=== PATIENT | male | born 1965 | race Asian ===

== ENCOUNTER → 2018-06-01 17:28 | Outpatient (CLI) | payer OTHER, SELFPAY ==
--- NOTE | 2018-06-01 17:31 | DI.MRI.S_ITS ---
PROCEDURE: MR LUMBAR SPINE WO CON INDICATIONS: CHRONIC LOW BACK PAIN TECHNIQUE: Noncontrast sagittal T1 spin echo and T2 fast echo, sagittal STIR, axial T1 and T2 fast spin echo through the lumbar spine. In cases with scoliosis, additional coronal T2 fast spin echo may be performed. COMPARISON: [facility], MR, L-SPINE WITHOUT CONTRAST, 05/24/2014, 11:04. [facility], CR, L-SPINE 2-3 VIEWS, 10/04/2007, 7:18. FINDINGS: Image quality: Diagnostic, with note made of motion artifact. Alignment and Curvature: There is normal bony alignment. Bone Marrow: Marrow is of normal overall signal. No acute vertebral body compression fractures. Spinal Cord: Conus medullaris terminates at the L1 level. Visualized cord demonstrates normal signal and size. Paraspinous Soft Tissues: No paravertebral masses. T12-L1: Normal appearance. L1-L2: Normal appearance. L2-L3: Normal appearance. L3-L4: No significant abnormality is seen. L4-L5: The disc height and disk signal are well-preserved. Mild to moderate disc bulge is seen, which is eccentric to the left side. There is moderate left-sided and no right-sided neural foraminal narrowing. No central canal narrowing. Stable from the prior study. L5-S1: Moderate loss of disc height is seen. Loss of disc signal is seen. Moderate disc bulge is seen. There is a central disc protrusion present. Mild facet joint hypertrophy is seen. Moderate bilateral neural foraminal narrowing is seen. Mild central canal narrowing is seen. When comparison is made with the prior examination, these degenerative changes are slightly progressed, with decreased disc height. IMPRESSION: Lower lumbar spine degenerative changes are seen, which are slightly progressed at the L5-S1 level compared to 2013. Dictated by: Thomas Mccormack M.D. on 06/02/2018 at 8:24 Approved by: Thomas Mccormack M.D. on 06/02/2018 at 8:29
== END ==
PROVIDERS: Visit Provider Physical Medicine & Rehabilitation Pain Medicine
DX: M51.26 Other intervertebral disc displacement, lumbar region (principal); M51.27 Other intervertebral disc displacement, lumbosacral region; M48.061 Spinal stenosis, lumbar region without neurogenic claudication; M48.07 Spinal stenosis, lumbosacral region; G89.29 Other chronic pain
CPT/HCPCS: 72148

== ENCOUNTER → 2020-12-12 09:05 | Outpatient (CLI) | payer OTHER, SELFPAY ==
--- NOTE | 2020-12-12 | DI.MRI.S_ITS ---
PROCEDURE: MR LUMBAR SPINE WO CON INDICATIONS: Radiculopathy, lumbar region TECHNIQUE: Noncontrast sagittal T1 spin echo and T2 fast echo, sagittal STIR, axial T1 and T2 fast spin echo through the lumbar spine. In cases with scoliosis, additional coronal T2 fast spin echo may be performed. COMPARISON: [facility], CR, XR LUMBAR SPINE WITH OLBIQUES PLUS FLEXION EXTENSION, 12/01/2020, 8:39. [facility], MR, MR LUMBAR SPINE WO CON, 06/01/2018, 17:46. [facility], MR, L-SPINE WITHOUT CONTRAST, 05/24/2014, 11:04. FINDINGS: Image quality: Excellent. Alignment and Curvature: There is normal bony alignment. Bone Marrow: Reactive endplate changes noted adjacent to the L5-S1 disc. No acute vertebral body compression fractures. Spinal Cord: Conus medullaris terminates at the L1 level. Visualized cord demonstrates normal signal and size. Paraspinous Soft Tissues: No paravertebral masses. T12-L1: Normal appearance. L1-L2: Normal appearance. L2-L3: Slight loss of disc signal. Minimal, diffuse disc bulge. No central stenosis. Mild left neural foraminal narrowing. No neural compression. L3-L4: Loss of disc signal. Mild, diffuse disc bulge. No central stenosis. Mild right neural foraminal narrowing. No neural compression. L4-L5: Loss of disc signal. Mild, diffuse disc bulge. No central stenosis. Mild right and moderate left neural foraminal narrowing. No neural compression. L5-S1: Loss of disc signal and height. Moderate, diffuse disc bulge. Mild bilateral facet hypertrophy. Mild narrowing of the central canal. Moderate bilateral neural foraminal narrowing. No neural compression. IMPRESSION: 1. Multilevel degenerative disc disease. 2. Mild L5-S1 facet arthropathy. 3. No severe central canal narrowing. 4. No severe neural foraminal narrowing. 5. No neural compression. Dictated by: Natasha Christy MD, PhD on 12/12/2020 at 12:53 Approved by: Natasha Christy MD, PhD on 12/12/2020 at 13:05
== END ==
PROVIDERS: PCP Internal Medicine; Referring Provider Physical Medicine & Rehabilitation Pain Medicine; Visit Provider Physical Medicine & Rehabilitation Pain Medicine
DX: M51.16 Intervertebral disc disorders with radiculopathy, lumbar region (principal); M51.17 Intervertebral disc disorders with radiculopathy, lumbosacral region; M47.27 Other spondylosis with radiculopathy, lumbosacral region
CPT/HCPCS: 72148

== ENCOUNTER → 2022-05-29 15:32 | Outpatient (CLI) | payer OTHER, SELFPAY ==
--- NOTE | 2022-05-29 15:34 | DI.MRI.S_ITS ---
PROCEDURE: MR CERVICAL SPINE WO CON INDICATIONS: Spinal stenosis, cervical region TECHNIQUE: Noncontrast sagittal T1 spin echo and T2 fast spin echo, sagittal STIR, foraminal oblique sagittal T2 fast spin echo, and axial gradient echo or T2 fast spin echo through the cervical spine. COMPARISON: None. FINDINGS: Image quality: Excellent. Alignment and Curvature: There is trace retrolisthesis of C4 on C5. Bone Marrow: Marrow demonstrates normal overall signal. Spinal Cord: Visualized spinal cord has normal size and signal. No cerebellar tonsillar herniation. Paraspinous Soft Tissues: No paravertebral masses. Prevertebral soft tissues are normal in thickness. Discs: Mild multilevel disc desiccation is present most notable at C6-7. C2-C3: Minimal disc bulge without spinal stenosis or foraminal narrowing. C3-C4: Mild disc bulge with superimposed posterior left paracentral protrusion. Mild spinal stenosis. Minimal right foraminal narrowing. Uncovertebral hypertrophy is present. C4-C5: Mild disc bulge with mild spinal stenosis. Minimal left foraminal narrowing with uncovertebral hypertrophy. C5-C6: Mild disc bulge with mild spinal stenosis. Mild bilateral foraminal narrowing, right greater than left with uncovertebral hypertrophy. C6-C7: Mild disc bulge with moderate spinal stenosis. Moderate bilateral foraminal narrowing, right greater than left with uncovertebral hypertrophy. C7-T1: No disc bulge, spinal stenosis or foraminal narrowing. IMPRESSION: Multilevel degenerative changes. Multilevel spinal stenosis most severe at C6-7 secondary to disc bulge. Multilevel foraminal narrowing most notable at C6-7 secondary to uncovertebral arthropathy. Dictated by: Loree Willard M.D. on 05/31/2022 at 11:25 Approved by: Loree Willard M.D. on 05/31/2022 at 11:31
== END ==
PROVIDERS: PCP Internal Medicine; Referring Provider Physical Medicine & Rehabilitation Pain Medicine; Visit Provider Physical Medicine & Rehabilitation Pain Medicine
DX: M48.02 Spinal stenosis, cervical region (principal); M47.812 Spondylosis without myelopathy or radiculopathy, cervical region; M50.31 Other cervical disc degeneration, high cervical region
CPT/HCPCS: 72141

== ENCOUNTER → 2024-03-06 09:19 | Outpatient (CLI) | payer OTHER, SELFPAY ==
--- NOTE | 2024-03-06 09:21 | DI.ECHO.S_ITS ---
[place]+ [facility] : : [address] : : [place] : : [id number] : : Phone: [phone] Echocardiogram Report + + :Name: JESSICA VALIENTE Study Date: 03/06/2024 Height: 69 in : :[facility] ReadingLocation: Weight: 230 lb : : Gender: Male BSA: 2.2 m2 : :: 1965 Age: 58 yrs BP: 163/103 mmHg: :Reason For Study: RIGHT BUNDLE BRANCH BLOCK : :Ordering Physician: FRACISCO, : :AZAR Performed By: Robby Christie : :Referring: AZAR YAP : + + Interpretation Summary 1) Mildly increased left ventricular thickness (concentric) with normal size, normal wall motion, and normal systolic function (EF 60-65%). 2) Normal right ventricular size and function. 3) No significant valvular abnormalities. 4) Hypertension present during the study (BP 163/103mmHg). 5) No prior Echo available for comparison. Procedure: A two-dimensional transthoracic echocardiogram with color flow and Doppler was performed. The study quality was technically adequate. There is no prior echocardiogram noted for this patient. The patient was in sinus rhythm with heart rates between 80-97 bpm during the exam. Left Ventricle: The left ventricle is normal in size. There is mild concentric left ventricular hypertrophy. The ejection fraction is estimated to be 60-65%. Left ventricular systolic function appears normal without focal wall motion abnormalities. Diastolic parameters suggest a relaxation abnormality of the left ventricle, consistent with probable normal filling pressures. Right Ventricle: The right ventricle is normal size. The right ventricular systolic function is normal. Atria: The left atrial size is normal. Right atrial size is normal. The interatrial septum grossly appears intact with no obvious evidence for an atrial septal defect. Mitral Valve: The mitral valve is normal. There is no mitral valve stenosis. There is no mitral regurgitation noted. Aortic Valve: The aortic valve is trileaflet. There is no aortic valve stenosis. No aortic regurgitation is present. Tricuspid Valve: The tricuspid valve is normal. There is no tricuspid stenosis. No tricuspid regurgitation. Pulmonic Valve: The pulmonic valve is not well visualized. There is no pulmonic valvular stenosis. There is no pulmonic valvular regurgitation. Great Vessels: The aortic root is normal size. The dimensions of the ascending aorta are normal. The IVC is of normal diameter and collapses greater than 50% with a sniff. This suggests a low right atrial pressure of 3 mm Hg. Pericardium/ Pleura There is no pericardial effusion. There is no pleural effusion. MMode/2D Measurements & Calculations LVIDd: 4.9 cm LVOT diam: 2.3 cm LVIDs: 3.2 cm Ao root diam: 3.4 cm FS: 34.2 % asc Aorta Diam: 3.0 cm IVSd: 1.2 cm LVPWd: 1.2 cm LV maharaj. diameter/BSA (cm/m^2): 2.2 LV sys. diameter/BSA (cm/m^2): 1.5 LA A2 area: 19.7 cm2 RA long axis: 5.0 cm LA A4 area: 16.9 cm2 RA area: 16.0 cm2 LA length (vol): 5.1 cm RA vol: 44.0 ml LA vol: 55.0 ml RA : 20.1 ml/m2 LA vol index: 25.1 ml/m2 IVC diam: 1.6 cm RVD1 (basal): 3.9 cm RVD2 (mid): 3.1 cm TAPSE: 2.3 cm Doppler Measurements & Calculations Ao V2 max: 96.6 cm/sec LVOT Max Cristo: 95.5 cm/sec Ao V2 mean: 72.1 cm/sec LV V1 max P.6 mmHg Ao max P.7 mmHg LV V1 VTI: 18.5 cm Ao mean P.2 mmHg YULIYA(I,D): 4.1 cm2 Ao V2 VTI: 18.1 cm YULIYA(V,D): 3.9 cm2 sev ratio: 1.0 YULIYA indexed to BSA (cm^2/m^2): 1.9 MV E max cristo: 70.2 cm/sec PA V2 max: 135.4 cm/sec MV A max cristo: 83.8 cm/sec PA V2 mean: 84.9 cm/sec MV E/A: 0.84 PA mean P.4 mmHg Med Peak E' Cristo: 7.1 cm/sec PA pr(Accel): 37.9 mmHg E/E' med: 9.8 Lat Peak E' Cristo: 6.9 cm/sec E/E' lat: 10.2 E/e' average: 10.0 MV dec time: 0.15 sec SV(LVOT): 74.1 ml Reading Physician:12:16 PM
== END ==
PROVIDERS: PCP Physician Assistant; Referring Provider Physician Assistant; Visit Provider Physician Assistant
DX: I45.10 Unspecified right bundle-branch block (principal)
CPT/HCPCS: 93306